=== PATIENT | male | born 1945 | race Caucasian/White ===

== ENCOUNTER → 2023-02-05 | Outpatient (CLI) | payer MEDICARE, OTHER | END | disposition home or self-care (01) | LOC: LABWHC1 11:09 | PROVIDERS: ATTEND Orthopaedic Surgery | DX: Z01.812 Encounter for preprocedural laboratory examination (principal); Z22.322 Carrier or suspected carrier of Methicillin resistant Staphylococcus aureus; E78.2 Mixed hyperlipidemia; M17.12 Unilateral primary osteoarthritis, left knee; R79.9 Abnormal finding of blood chemistry, unspecified | CPT/HCPCS: 36415; 83036; 87070 ==

== ENCOUNTER 2023-02-12 05:47 | Day surgery (SDC) | payer MEDICARE, OTHER ==
[2023-02-06 10:30] VITALS: BMI 25.8
--- NOTE | 2023-02-11 13:42 | HP ---
HISTORY AND PHYSICAL DATE OF SURGERY: 02/12/2023. HISTORY OF PRESENT ILLNESS: Nasir Chen is a 77-year-old gentleman seen with symptomatic left knee osteoarthritis. After treatment options were discussed, he elected to proceed with left total knee arthroplasty. Consent regarding the procedure was obtained. His medical clearance was provided by Dr. Song. Cardiac clearance was provided by Dr. Cotto. PAST MEDICAL HISTORY: Hypertension, hyperlipidemia, cardiovascular disease. PAST SURGICAL HISTORY: Noncontributory. DAILY MEDICATIONS: 1. Amlodipine. 2. Aspirin. 3. Atorvastatin. 4. Losartan. ALLERGIES: Lisinopril. SOCIAL HISTORY: He denies tobacco use. PHYSICAL EVALUATION OF LEFT KNEE: Range of motion is -4/5 to 100 degrees. Mild effusion. Tenderness to medial joint line. Crepitus medial patellofemoral compartments with range of motion. Some pain with patellofemoral compression. Ligaments stable. Hip rotation without pain. Distal neurovascular exam is intact. RADIOGRAPHS: Left knee radiographs reveal severe osteoarthritic changes. IMPRESSION: 1. Left knee osteoarthritis. 2. Hypertension. 3. Hyperlipidemia. PLAN: Left total knee arthroplasty. MMODL / IJN: [id number] /
[~2023-02-12 05:47] MED LIST: ACETAMINOPHEN TAB 500 MG TAB PO PRN; MELOXICAM 7.5 MG TAB PO PRN; TRANEXAMIC 1,000 MG/100ML-NACL 1,000 MG in SALINE 1 100ML.BAG IVPB PRN
[2023-02-12] MEDS ORDERED: ONDANSETRON 4 MG/2 ML VIAL IVP ONE (06:12)
[2023-02-12] MEDS ORDERED: DEXAMETHASONE SOD PHOSPHATE 4 MG/ML 1 ML VIAL IV ONE (06:12)
[2023-02-12] MEDS ORDERED: LACTATED RINGERS 1,000 ML IV SCH (06:12)
[2023-02-12] MEDS ORDERED: MIDAZOLAM 2 MG/2 ML VIAL IV PRN (06:12)
[2023-02-12] MEDS ORDERED: LIDOCAINE 1% (10MG/ML) FOR IV START INTRADERMA PRN (06:12)
[2023-02-12] MEDS ORDERED: MIDAZOLAM 2 MG/2 ML VIAL IV ONE (07:00)
[2023-02-12] MEDS ORDERED: GLYCOPYRROLATE 0.2 MG/ML 2 ML VIAL ONE (07:28)
[2023-02-12] MEDS ORDERED: ePHEDrine 50 MG/ML 1 ML VIAL ONE (07:28)
[2023-02-12] MEDS ORDERED: TRANEXAMIC 1,000 MG/100ML-NACL PREMIX BAG ONE (07:28)
[2023-02-12] MEDS ORDERED: NEOSTIGMINE 1 MG/ML 10 ML VIAL ONE (07:28)
[2023-02-12] MEDS ORDERED: LIDOCAINE 2% INJ 20 MG/ML (2 ML VIAL) ONE (07:28)
[2023-02-12] MEDS ORDERED: DEXAMETHASONE SOD PHOSPHATE 4 MG/ML 1 ML VIAL ONE (07:28)
[2023-02-12] MEDS ORDERED: ROPIVACAINE 5 MG/ML 30 ML VIAL ONE (07:28)
[2023-02-12] MEDS ORDERED: ROCURONIUM 10 MG/ML (5 ML VIAL) IV ONE (07:28)
[2023-02-12] MEDS ORDERED: PHENYLEPHRINE-0.9% NACL SYG 1,000 MCG/10 ML SYRINGE ONE (07:28)
[2023-02-12] MEDS ORDERED: SODIUM CHLORIDE 0.9% (PF) 10 ML VIAL ONE (07:28)
[2023-02-12] MEDS ORDERED: fentaNYL (PF) 50 MCG/ML 2 ML AMP ONE (07:28)
[2023-02-12] MEDS ORDERED: PROPOFOL 10 MG/ML 20 ML VIAL IV ONE (07:28)
[2023-02-12] MEDS ORDERED: ceFAZolin 1,000 MG in SODIUM CHLORIDE 0.9% 1,000 ML IRRIGATION ONE (07:32)
[2023-02-12 07:34] VITALS: TEMP 98.3
[2023-02-12] MEDS ORDERED: LACTATED RINGERS 1,000 ML IV ONE ×3 (08:32→11:30)
[2023-02-12] MEDS ORDERED: HYDROmorphone 0.5 MG/0.5 ML SYRINGE IVP PRN ×3 (09:15)
[2023-02-12] MEDS ORDERED: HYDROcodone/APAP 5-325MG 1 EACH TAB PO PRN (09:15)
[2023-02-12] MEDS ORDERED: NALOXONE 0.4 MG/ML 1 ML VIAL IV PRN (09:15)
[2023-02-12] MEDS ORDERED: ONDANSETRON 4 MG/2 ML VIAL IVP PRN (09:15)
[2023-02-12] MEDS ORDERED: HYDROcodone/APAP 7.5-325MG 1 EACH TAB PO PRN (09:15)
--- NOTE | 2023-02-12 09:15 | P.OP ---
Date of Procedure: 02/12/23 Preoperative Diagnosis: Left knee osteoarthritis Postoperative Diagnosis: Left knee osteoarthritis Procedure(s) Performed: Left total knee arthroplasty Implants: 1. Depuy attune size 8 left cruciate retaining cemented femur 2. Depuy attune size 8 fixed bearing cemented tibial baseplate 3. Depuy attune size 8 fixed bearing cruciate retaining 5 mm polyethylene tibial insert 4. Depuy attune 38 mm all polyethylene cemented patella Anesthesia: GETA, regional (Adductor canal catheter, Ipack block) Surgeon: Uzair Beverly Dump Grader #1: Keshawn Hubbard Estimated Blood Loss (ml): 40 Pathology: none sent Condition: stable Disposition: PACU Indications for Procedure: 77-year-old gentleman seen with symptomatic left knee osteoarthritis. After treatment options were discussed with him, he elected to proceed with total knee arthroplasty. Operative Findings: See description of procedure Description of Procedure: Patient was taken to the operative suite after having an adductor canal catheter placed by the department of anesthesia. Patient underwent a general anesthetic by the department of anesthesia. Patient was given preoperative IV intake antibiotics and TXA. A well-padded tourniquet was placed about the left lower extremity. The lower extremity was then prepped and draped in the normal sterile orthopedic fashion. The extremity was elevated, a tourniquet was insufflated to 300. A standard anterior incision was made sharply through skin. Dissection was taken down through the subcutaneous soft tissues down to the extensor mechanism. A medial arthrotomy was performed, patella was everted and knee was flexed. There was advanced osteoarthritis noted. I introduced my distal intramedullary femoral drill. I then introduced the distal femoral cutt ing jig. Stuart THOMAS secured the cutting jig with 2 pins. I held retractors in position while Stuart THOMAS performed the distal femoral resection through the guide area we now removed her distal femoral cutting guide. We now placed our 4-in-1 femoral cutting block and positioned and it was secured with 2 pins by Stuart THOMAS while I held the block in position. The distal femoral finishing was now completed. A proximal tibial cutting guide was positioned. I held the guide in the appropriate position with both hands well Stuart THOMAS inserted stabilizing pins into the guide. Proximal tibial cut was made. We now placed a trial femoral component into position, along with an appropriate size tibial tray and insert. We now took the knee through range of motion and had full extension good flexion and good overall soft tissue balance noted. The patella was everted and stabilized with 2 towel clips held by Stuart THOMAS while I performed a flush with patellar quad tendon utilizing a fresh sawblade. We templated the patella, appropriate drill holes were made. An appropriate trial patella was positioned, knee was taken through full range of motion with the patella tracking very nicely. The trial patella was removed. Drill holes were made through the femoral component. All trial components were removed after marking off the appropriate rotation of the tibia. Retractors were now positioned along the proximal tibia. An appropriate keel punch was made with the appropriate size tibial guide by myself on Stuart THOMAS assisted by holding retractors. At this point appropriate size implants were chosen and opened. The joint was irrigated copiously with pulse lavage mechanical irrigation. The wound was irrigated with pulse lavage mechanical irrigation. We mixed antibiotic methylmethacrylate. We placed the knee into flexion. We placed multiple retractors assisted by Stuart THOMAS to expose the proximal tibia. Once the methyl methacrylate was ready, the tibial component was cemented into place removing any excess methylmethacrylate form by both myself and Stuart THOMAS. The femoral component was cemented into place removing the removing any excess methylmethacrylate performed by both myself and Stuart THOMAS. We then inserted the appropriate size polyethylene tibial insert. We made sure that it was locked into position. We took the knee into full extension, and then back in a flexion making sure we had removed any excess methylmethacrylate. The patellar component was then cemented down and secured with clamp. Excess methylmethacrylate removed. We kept the knee in full extension, patellar clamp in position until methylmethacrylate had hardened. Once it had hardened the patellar clamp was removed. The knee was taken through full range of motion. The patella tracked nicely. There was good soft tissue balancing. The tourniquet was now released. Additional hemostasis was achieved via electrocautery. A second gram of TXA was given. The wound again was irrigated with pulse lavage mechanical irrigation. The extensor mechanism was repaired with Ethibond suture. We checked the repair with range of motion and it was stable. The subcutaneous soft tissues were repaired with Vicryl in layers. The skin was approximated with pernio/Dermabond. Sterile dressings were applied followed by loose web roll and Art bandage. The patient was transferred to a bed, and taken to recovery in stable and satisfactory condition. Stuart THOMAS assisted with this complex procedure.
[2023-02-12] MEDS ORDERED: HYDROmorphone 0.5 MG/0.5 ML SYRINGE IVP ONE (09:40)
[2023-02-12] MEDS ORDERED: ROPIVACAINE 1,100 MG, SODIUM CHLORIDE 0.9% 500 ML 330 ML, EMPTY PAIN BALL 1 EACH MISCELLANE PRN ×2 (09:47)
[2023-02-12] MEDS: HYDROmorphone 0.5 MG/0.5 ML SYRINGE IVP PRN ×3 (10:00→10:27)
--- NOTE | 2023-02-12 10:08 | XR ---
EXAMINATION TYPE: XR knee limited LT DATE OF EXAM: 02/12/2023 10:04 AM INDICATION: Patient age:Male; 77 years old; Reason for study: Evaluation for Postop abnormality and alignment; H. COMPARISON: Left knee radiographs 01/07/2023 TECHNIQUE: The Left knee(s) was examined in AP and crosstable lateral projections. FINDINGS: Postsurgical changes from total left knee arthroplasty with distal femoral and proximal t ibial components. Hardware appears intact with appropriate alignment. There is associated soft tissue edema and gas. No acute fracture or dislocation. IMPRESSION: Postsurgical changes from total left knee arthroplasty. Hardware appears intact with appropriate alig nment.
[2023-02-12] MEDS ORDERED: HYDROcodone/APAP 7.5-325MG 1 EACH TAB PO ONE (11:26)
[2023-02-12 12:40] VITALS: BP 146/67; PULSE 85; RESP 18
--- NOTE | 2023-02-12 18:43 | P.ANPRN ---
Procedure Note - Anesthesia - Nerve Block Performed Left Adductor Canal Infusion Time Out Performed: Yes Date of Procedure: 02/12/23 Procedure Start Time: 07:00 Procedure Stop Time: 07:16 Location of Patient: PreOp Indication: Acute Post-Operative Pain, Requested by Surgeon Sedation Type: Sedate with meaningful contact maintained Preparation: Sterile Prep, Sterile Dressing Position: Supine Catheter: Indwelling Needle Types: Pajunk Needle Gauge: 21 Ultrasound used to visualize needle placement: Yes Ultrasound used to observe medication spread: Yes Blood Aspirated: No Pain Paresthesia on Injection Noted: No Resistance on Injection: Normal Image Stored and Saved: Yes Events: Uneventful and Well Tolerated (Ropivacaine 0.5% 20 mL plus dexamethasone 4 mg)
--- NOTE | 2023-02-12 18:45 | P.ANPRN ---
Procedure Note - Anesthesia - Nerve Block Performed Left iPack Single Time Out Performed: Yes Date of Procedure: 02/12/23 Procedure Start Time: 07:17 Procedure Stop Time: 07:21 Location of Patient: PreOp Indication: Acute Post-Operative Pain, Requested by Surgeon Sedation Type: Sedate with meaningful contact maintained Preparation: Sterile Prep Position: Supine Needle Gauge: 21 Ultrasound used to visualize needle placement: Yes Ultrasound used to observe medication spread: Yes Blood Aspirated: No Pain Paresthesia on Injection Noted: No Resistance on Injection: Normal Image Stored and Saved: Yes Events: Uneventful and Well Tolerated (Ropivacaine 0.5% 20 mL plus dexamethasone 4 mg)
== END 2023-02-12 14:26 | disposition home health service (06) ==
LOC: OR 05:47
PROVIDERS: ATTEND Orthopaedic Surgery
DX: M17.12 Unilateral primary osteoarthritis, left knee (principal); G89.18 Other acute postprocedural pain; I10 Essential (primary) hypertension; E78.5 Hyperlipidemia, unspecified; I25.10 Atherosclerotic heart disease of native coronary artery without angina pectoris; Z79.82 Long term (current) use of aspirin; Z79.899 Other long term (current) drug therapy; Z88.8 Allergy status to other drugs, medicaments and biological substances
CPT/HCPCS: 97162; 64999; 64448; 73560; 27447; C1776; C1713 ×2; C1751; J2250; J1100; J2710; J0690 ×2; J2405; J3010; J2795; J2370; J2704; J1170; J2001